=== PATIENT | male | born 1985 | race Hispanic/Latino ===

== ENCOUNTER 2018-03-01 05:06 | Day surgery (SDC) | payer BC ==
[~2018-03-01] VITALS: Ht 165.1 cm; Wt 69.9 kg
[2018-03-01 05:44] VITALS: BP 124/79
[2018-03-01] MEDS ORDERED: HYDROCODON-ACE1 EAC7 PO (08:58)
[2018-03-01 10:42] VITALS: BP 140/78
[2018-03-01 11:29] VITALS: BP 133/75
== END 2018-03-01 11:32 | disposition home or self-care (01) ==
LOC: SDC 05:06
PROC: 0JB90ZZ Excision of Buttock Subcutaneous Tissue and Fascia, Open Approach (ICD-10-PCS; principal; 2018-03-01)
DX: L05.02 Pilonidal sinus with abscess (principal); F41.9 Anxiety disorder, unspecified; Z91.040 Latex allergy status; Z91.09 Other allergy status, other than to drugs and biological substances; F17.200 Nicotine dependence, unspecified, uncomplicated
CPT/HCPCS: 87070; 87075; 87076; 87205; 88304; J0131; J0330; J0690; J1100; J1885; J2250; J2405; J3010; S0074